=== PATIENT | female | born 1990 | race Native Hawaiian/Other Pacific Islander ===

== ENCOUNTER → 2019-04-24 07:32 | Outpatient (CLI) | payer BC, OTHER ==
[~2019-04-24 07:32] MED LIST: PRENATAL1 T10 PO; PROM25TA52 PO; TRIAMCINOLON0.5 % TOP
== END | disposition home or self-care (01) ==
LOC: AMB 07:32
DX: Z04.1 Encounter for examination and observation following transport accident (principal)